=== PATIENT | male | born 1985 | race Caucasian/White ===

== ENCOUNTER → 2020-01-31 | Outpatient (CLI) | payer OTHER | END | disposition home or self-care (01) | LOC: RAD 07:11 | PROVIDERS: ATTEND Specialist | DX: K58.0 Irritable bowel syndrome with diarrhea (principal) | CPT/HCPCS: 74250 ==

== ENCOUNTER 2020-07-03 08:36 | Outpatient (CLI) | payer BC, OTHER ==
[2020-07-03] MEDS ORDERED: FENTANYL PF 100 MCG/2ML ONE (10:07)
[2020-07-03] MEDS ORDERED: MIDAZOLAM 1 MG/ML, 5ML ONE (10:08)
[2020-07-03] MEDS ORDERED: GADOTERATE 10 MMOL/20 ML VIAL ONE (10:49)
== END 2020-07-03 23:59 | disposition home or self-care (01) ==
LOC: RAD 08:36
PROVIDERS: ATTEND Family Medicine
DX: C72.0 Malignant neoplasm of spinal cord (principal); M48.07 Spinal stenosis, lumbosacral region; Z88.0 Allergy status to penicillin; Z88.8 Allergy status to other drugs, medicaments and biological substances
CPT/HCPCS: 72158; 99156; 99157; A9575; J2250; J3010

== ENCOUNTER 2020-10-13 22:04 | Emergency (ER) | payer BC ==
[~2020-10-13] VITALS: Ht 180.3 cm; Wt 108.0 kg
--- NOTE | 2020-10-14 01:36 | NUR ---
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
[2020-10-14] MEDS ORDERED: KETOROLAC 30 MG/1 ML IM ONE (02:00)
[2020-10-14] MEDS ORDERED: HYDROmorphone 2 MG/ML, 1ML IM ONE (02:00)
[2020-10-14] MEDS ORDERED: KETOROLAC 30 MG/1 ML ONE (02:21)
[2020-10-14] MEDS ORDERED: HYDROmorphone 2 MG/ML, 1ML ONE (02:21)
--- NOTE | 2020-10-14 02:26 | NUR ---
medicated per emar
--- NOTE | 2020-10-14 03:23 | NUR ---
WITH ASSESSMENT PAIN IMPROVED TO 3/10 VSS
[2020-10-14 03:37] VITALS: BP 129/80
== END 2020-10-14 03:39 | disposition home or self-care (01) ==
LOC: ED 23:33
DX: M25.551 Pain in right hip (principal); K21.9 Gastro-esophageal reflux disease without esophagitis; Z88.1 Allergy status to other antibiotic agents
CPT/HCPCS: 73502; 96372; 99284; J1170; J1885